=== PATIENT | female | born 1990 | race African-American/Black ===

== ENCOUNTER 2021-08-23 20:39 | Emergency (ER) | payer SELFPAY ==
[2021-08-23] MEDS ORDERED: Ketorolac Tromethamine 30 MG/ML VIAL ONE (22:12)
[2021-08-23 23:12] LABS: Anion Gap 13 mmol/L (10-20); BUN (Urea Nitrogen) 13 mg/dL (7.0-18.7); Calc. Creatinine Clearance 0 mL/min (70-130); Calcium 8.7 mg/dL (7.8-10.44); Carbon Dioxide 23 mmol/L (22-29); Chloride 109 mmol/L (98-107); Glucose 73 mg/dL (70-105); Potassium 3.8 mmol/L (3.5-5.1); Sodium 141 mmol/L (136-145)
== END 2021-08-23 23:34 | disposition home or self-care (01) ==
LOC: BURERS 20:39
DX: G62.9 Polyneuropathy, unspecified (principal); R60.0 Localized edema
CPT/HCPCS: 36415; 80048; 96372; 99283; J1885

== ENCOUNTER 2021-09-06 21:03 | Emergency (ER) | payer SELFPAY | END 2021-09-06 21:30 | disposition home or self-care (01) | LOC: BURERS 21:03 | DX: J45.909 Unspecified asthma, uncomplicated (principal) | CPT/HCPCS: 99283 ==

== ENCOUNTER 2021-09-13 22:53 | Emergency (ER) | payer OTHER, SELFPAY ==
[2021-09-13] MEDS ORDERED: Ibuprofen 200 MG TAB ONE (23:10)
== END 2021-09-13 23:15 | disposition home or self-care (01) ==
LOC: BURERS 22:53
DX: S29.011A Strain of muscle and tendon of front wall of thorax, initial encounter (principal); I49.1 Atrial premature depolarization; J45.909 Unspecified asthma, uncomplicated; F17.210 Nicotine dependence, cigarettes, uncomplicated; X50.0XXA Overexertion from strenuous movement or load, initial encounter; Y92.69 Other specified industrial and construction area as the place of occurrence of the external cause; Z79.899 Other long term (current) drug therapy
CPT/HCPCS: 93005

== ENCOUNTER 2021-10-16 19:05 | Emergency (ER) | payer SELFPAY ==
[2021-10-16] MEDS ORDERED: Ibuprofen 800 MG TAB ONE (19:34)
[2021-10-16] MEDS ORDERED: Metoclopramide HCl 10 MG TAB ONE (19:34)
[2021-10-16] MEDS ORDERED: diphenhydrAMINE 50 MG/ML VIAL ONE (19:34)
[2021-10-16] MEDS ORDERED: diphenhydrAMINE 25 MG CAP ONE (19:35)
== END 2021-10-16 19:45 | disposition home or self-care (01) ==
LOC: BURERS 19:05
DX: R51.9 Headache, unspecified (principal); F17.210 Nicotine dependence, cigarettes, uncomplicated
CPT/HCPCS: 99283; J1200